=== PATIENT | female | born 1960 | race Caucasian/White ===

== ENCOUNTER → 2017-09-06 | Outpatient (CLI) | payer OTHER | LOC: FIMAGING 15:39 | PROVIDERS: ATTEND Family Medicine | DX: Z12.31 Encounter for screening mammogram for malignant neoplasm of breast (principal) ==

== ENCOUNTER 2017-09-18 12:32 | Observation (INO) | payer OTHER ==
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
--- NOTE | 2017-09-18 13:01 | CPEKG ---
Heart Rate: 62 RR Interval: 968 P-R Interval: 188 QRSD Interval: 78 QT Interval: 404 QTC Interval: 411 P [place]: 47 QRS [place]: 60 T Wave [place]: 16 EKG Severity - NORMAL ECG - EKG Impression: SINUS RHYTHM Electronically Signed By: Yinka Turk 20-Sep-2017 07:19:23
[2017-09-18 13:09] LABS: PLATELET COUNT 276 10^3/uL (150-400)
[2017-09-18] MEDS ORDERED: NS 1,000 ML IV ONE ×2 (13:10)
[2017-09-18] MEDS ORDERED: IOPAMIDOL (ISOVUE 370) 100 ML BTL IV ONE (13:13)
[2017-09-18 13:17] LABS: INR 0.92 (0.83-1.16); PROTIME(PATIENT) 12.6 SEC (12.0-15.0)
[2017-09-18] MEDS ORDERED: ASPIRIN 81 MG CHEWABLE TAB PO ONE ×2 (14:12→14:33)
[2017-09-18] MEDS ORDERED: ASPIRIN 81 MG CHEWABLE TAB ONE (14:32)
[2017-09-18] MEDS ORDERED: GADOBUTROL 10 ML VIAL IVP ONE (15:09)
[2017-09-18] MEDS ORDERED: LORazepam 0.5 MG TAB PO PRN (15:56)
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
[2017-09-18] MEDS ORDERED: oxyCODONE IR 5 MG TAB PO PRN (18:44)
[2017-09-18] MEDS ORDERED: ACETAMINOPHEN 325 MG TAB PO PRN (18:44)
[2017-09-18] MEDS ORDERED: ONDANSETRON 4 MG/2 ML VIAL IVP PRN (18:44)
[2017-09-18] MEDS ORDERED: NS 1,000 ML IV SCH (18:45)
[2017-09-18] MEDS ORDERED: ACETAMINOPHEN 650 MG SUPP PR PRN (18:45)
[2017-09-18] MEDS ORDERED: LORazepam 2 MG/ML INJ IVP PRN (18:46)
[2017-09-18] MEDS: HYDROmorphONE/DILAUDID 1 MG/ML INJ IVP PRN ×3 (20:07→23:14)
[2017-09-18] MEDS ORDERED: METOPROLOL SUCCINATE XR 25 MG TAB PO SCH (21:00)
[2017-09-18] MEDS: lamoTRIgine 100 MG TAB PO SCH (22:28)
[2017-09-19] MEDS: HYDROmorphONE/DILAUDID 1 MG/ML INJ IVP PRN ×2 (02:03→05:59)
[2017-09-19 05:48] VITALS: O2SAT 94
[2017-09-19 08:07] VITALS: TEMP 98
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
[2017-09-19] MEDS ORDERED: ENOXAPARIN 40 MG/0.4 ML SYR SC SCH (09:00)
[2017-09-19] MEDS ORDERED: ASPIRIN EC 325 MG TAB PO SCH (09:00)
[2017-09-19] MEDS: lamoTRIgine 100 MG TAB PO SCH (10:08)
[2017-09-19] MEDS: oxyCODONE IR 5 MG TAB PO PRN ×2 (10:09→14:02)
--- NOTE | 2017-09-19 10:28 | ASMTCMCOM ---
CM Note CM Note Notes: Patient admitted for stroke-like symptoms, differential dx is TIA vs partial seizure. A meningioma was found on imaging, which could explain her symptoms. Neurosurgery will see her. She will also be worked up for a thyroid mass - an ultrasound has been ordered. She has a history of depression with bipolar features and is managed with Lamictal. Patient is normally independent, lives with her , and works as a psychotherapist. [employer]IVER has seen her and no needs identified. Case Management will follow for any potential discharge needs. Date Signed: 09/19/2017 10:27 AM Electronically Signed By:Jaimee Mojica RN
--- NOTE | 2017-09-19 11:12 | ECHO ---
[email or web address] [address] [address] Main: [phone] Fax: Transthoracic Echocardiogram Name: ANN MARIE AGUDELO MR#: [id number] Study Date: 09/19/2017 Study Time: 07:32 AM Date of : 1960 Age: 56 year(s) Height: 172.7 cm (68 in.) Weight: 95.26 kg (210 lb.) BSA: 2.09 m2 Gender: Female Examination: Echo Indication: TIA 101 Image Quality: Contrast: Requested by: Bee Leon BP: 101 mmHg/50 mmHg Heart Rate: Rhythm: Indication: TIA Procedure Staff Rate And Cost Analyst: Sydnee Malagon [facility] Reading Physician: Donnie Petty Requesting Provider: Conclusions: Normal global systolic LV function. The ejection fraction is estimated to be 65-70 %. There is mild prolapse of the anterior leaflet of the mitral valve. Moderate mitral valve regurgitation is present. Moderate tricuspid regurgitation is present. Measurements: Chambers Valvular Assessment AV/MV Valvular Assessment TV/PV Normal Normal Normal Name Value Range Name Value Range Name Value Range Ao Rani (2D): 2.8 cm (1.4 cm-2.6 AV meanP mmHg ( - ) TR Vmax: 2.58 mm/s ( - ) cm) LVOT Vmax: 1.03 m/s (0.7 m/s-1.1 TR PGmax: 27 mmHg ( - ) IVSd (2D): 0.6 cm (0.6 cm-1.1 m/s) syst. PAP: 32 mmHg ( - ) cm) RAIN (VTI): 2.3 cm ( - ) LVDd (2D): 4.8 cm (3.9 cm-5.3 MV meanP mmHg ( - ) cm) MVA (Vmax): 2.6 m/s ( - ) LVDs (2D): 2.8 cm (2.1 cm-4 cm) LVPWd (2D): 0.7 cm ( - ) LVOTd 1.9 cm 1.9 cm mm LVEF (MOD4): 73 % (>=55 %) EF Range: 65-70 % Continued Measurements: Chambers Valvular Assessment AV/MV Valvular Assessment TV/PV Name Value Name Value Name Value LADs: 3.6 cm MV Annulus: 2.7 cm CVP (est.): 5 mmHg LADs Lon.2 cm MV VTI: 30.20 cm Patient: ANN MARIE AGUDELO Study Date: 09/19/2017 Page 1 of 2 07:32 AM LA Area: 21.2 cm2 MR Vena Contracta: 0.3 cm MR ERO: 0.120 cm2 MR PISA radius: 5 mm MR Reg. Volume: 21 ml MR Reg. Fraction: 12 % Additional Vessels Name Value Ao Ascendin.2 cm Findings: Left Ventricle: Normal size left ventricle. No LV hypertrophy. Normal global systolic LV function. The ejection fraction is estimated to be 65-70 %. No regional wall motion abnormality. Right Ventricle: Normal size right ventricle. Left Atrium: The left atrium is mildly dilated. Right Atrium: The right atrium is mildly dilated. Mitral Valve: There is mild prolapse of the anterior leaflet of the mitral valve. Moderate mitral valve regurgitation is present. Aortic Valve: The aortic valve is normal in appearance. Tricuspid Valve: The tricuspid valve is normal in appearance and function. Moderate tricuspid regurgitation is present. The pulmonary artery pressure is normal. Pulmonic Valve: The pulmonic valve is normal in appearance and function. Aorta: The aorta is normal. Pericardium: Trivial pericardial effusion. (No Signature Object) Patient: ANN MARIE AGUDELO Study Date: 09/19/2017 Page 2 of 2 07:32 AM [id number]
[2017-09-19 11:51] VITALS: BP 112/59; PULSE 66; RESP 16
--- NOTE | 2017-09-19 12:22 | PDMN ---
Medical Necessity Medical necessity: R temporal lobe meningioma on MRI noted, neuro changes- L facial droop and slurred speech- U/S shows 2.9 cm midline mass and 2 cm R thyroid nodule, with TSH mildly elevated, ENT, Neurosgy consults pending, ongoing eval, monitoring and tx needed > 2 midnights. IV pain, fluids
[2017-09-19] MEDS ORDERED: LACTULOSE 20 GM/30 ML UDCUP PO PRN (14:04)
[2017-09-19] MEDS ORDERED: BISACODYL 10 MG SUPP PR PRN (14:04)
[2017-09-19] MEDS ORDERED: MAGNESIUM HYDROXIDE 30 ML UDCUP PO PRN (14:04)
[2017-09-19] MEDS ORDERED: POLYETHYLENE GLYCOL 3350 17 GM PKT PO PRN (14:04)
[2017-09-19] MEDS ORDERED: DEXAMETHASONE 10 MG/ML VIAL IVP ONE (14:54)
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
--- NOTE | 2017-09-19 16:40 | GCON ---
[f rep st] CONSULTATION NEUROLOGY CONSULT. DATE OF CONSULTATION: 09/19/2017 REFERRING PHYSICIAN: Bee Leon MD CHIEF COMPLAINT: TIA. 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 No significant past cardiovascular history. She was with a client yesterday when she suddenly felt articulatory problems with speech slurring and had the sensation that her left face was drooping. After her session was over, she looked in the mirror and thought there was asymmetry with weakness on the left side. All of these symptoms lasted 20 minutes and spontaneously resolved. There was no left leg or left arm weakness. No language symptoms, such as comprehension or expressive problems. She came to the ED and had a CTA of the head and neck which showed no significant carotid or intracranial stenosis. MRI brain showed what is likely an incidental meningioma in the right para-cavernous region without edema in the surrounding right temporal area. REVIEW OF SYSTEMS: Occasional palpitations - otherwise A 10-point review of systems is done only pertinent to HPI. Past medical history, social history, home medications, allergies, see Dr. Leon 's is History and Physical. LABS: Patient has an LDL of 88; otherwise, unremarkable lipid panel and an elevated TSH. PHYSICAL EXAM: VITAL SIGNS: Blood pressure 115/60, temperature 36.7, heart rate is regular, 60s. No AFib on monitor that I am aware of. NEUROLOGIC: Higher mental function: Awake and alert. No aphasia. Cranial nerve exam: Normal 2-7. Motor exam: Normal strength and tone throughout. Sensory exam: Normal. Coordination: Normal. Gait: Normal. In summary, normal neurologic exam. IMPRESSION/PLAN: 1. Transient ischemic attack. 2. Meningoma The patient's clinical history is most consistent with a very focal transient ischemic attack, perhaps in the right motor strip - in the region encoding for the face area. We discussed at length. Her echocardiogram shows some mitral valve regurgitation and mild left atrial enlargement. Certainly, this may be a risk factor for paroxysmal atrial fibrillation. There has been no atrial fibrillation reported on telemetry thus far. Going forward, she will be on daily aspirin and statin therapy and have close followup with Cardiology for a 30-day Event monitor. If the 30-day Event monitor is negative, I encouraged the patient to proceed with an implantable monitoring manager/LINQ monitor to further screen for paroxysmal atrial fibrillation. She is agreeable to the plan. No significant carotid disease as noted above. She will follow up with me as needed as well as an outpatient. She will follow-up with neurosurgery as outpatient for evaluation and treatment of meningoma. Thank you for this consultation. Seventy total minutes floor time today reviewing testing, coordination of care with Neurosurgery and Hospital Medicine , and direct counseling with the patient and her family. /[id number]/MODL MTDD
--- NOTE | 2017-09-19 18:00 | GDS ---
[f rep st] DISCHARGE SUMMARY DISCHARGE DIAGNOSES: 1. Transient ischemic attack. 2. Right temporal lobe meningioma. 3. Thyroid nodule. 4. Midline neck mass which may be an exophytic inferior thyroid lesion. 5. Chronic kidney disease. 6. Depression with bipolar features. 7. Traumatic brain injury. CONSULTANTS: 1. Dr. Abhishek Forrest, Neurosurgery. 2. Dr. Bandar Gomez, Neurology. HISTORY OF DETAILS: Please see History and Physical, dated September 18, 2017. In brief, the patient is a 56-year-old female, with a history of prior meningioma resection in her thoracic spine, who pre sents to the emergency department with 3 intermittent episodes of left facial droop and slurred speec h. She was admitted to hospital for further management. HOSPITAL COURSE: Patient was admitted to the Med/Surg Neuro Unit. TIA was considered versus a parti al seizure in the setting of meningioma. She came in as a stroke alert. [facility] was cons ulted and recommended against tPA since her symptoms had improved. She was started on full-dose aspi rin. Neurosurgery consult was obtained and did not feel that the right temporal lobe meningioma was related in any way to her symptoms. There was no associated edema to suggest that this was a seizure . Furthermore, we would expect more positive symptoms, such as contracture, in the setting of seizur e rather than facial droop. I discussed the case with Neurology on the day of discharge. This is mo st likely a TIA event. Echocardiogram was obtained, and there was no evidence of LV thrombus. She d oes have some mitral valve disease and will need outpatient cardiology followup. Brain MRI was perfo rmed that showed no evidence of infarct. She also did undergo CTA head and neck upon presentation th at showed no large vessel occlusions and no significant carotid or vertebral stenosis. The patient h as no symptoms, such as dysphagia or odynophagia. On the day of discharge, her symptoms are complete ly resolved. She will be discharged home for further outpatient followup regarding her TIA, includin g plans for outpatient cardiac Event monitor. I discussed with her aspirin and statin therapy for se condary prevention. She will see ENT to pursue likely biopsy of her thyroid nodule. DISPOSITION: Patient is discharged home in stable condition. FOLLOWUP: 1. Dr. Emma Mcleod, Primary Care. 2. Dr. Dariel Hampton, ENT, for further evaluation of her neck mass and thyroid nodule. 3. Dr. Bandar Gomez, Neurology. 4. Dr. Rosy Anderson, [facility], to arrange for outpatient cardiac Event monitor. 5. Dr. Abhishek Forrest for followup on her right temporal lobe meningioma. DISCHARGE MEDICATIONS: 1. Aspirin 325 mg p.o. daily, #30. 2. Lipitor 40 mg p.o. daily, #30. 3. She will continue all other outpatient medications as previously prescribed. Both Neurology and Neurosurgery did not think there is an indication for Keppra or dexamethasone. /[id number]/MODL
[2017-09-19] MEDS ORDERED: levETIRAcetam 500 MG TAB PO SCH (21:00)
[2017-09-19] MEDS ORDERED: SENNOSIDES/DOCUSATE SODIUM TAB PO SCH (21:00)
== END 2017-09-19 16:18 | disposition home or self-care (01) ==
LOC: F3N 15:50 → INTOOBSV 09-19 11:48 → OBSVTOIN 09-19 11:48
PROVIDERS: ADMIT Internal Medicine; ATTEND Hospitalist
DX: G45.9 Transient cerebral ischemic attack, unspecified (principal); D32.0 Benign neoplasm of cerebral meninges; E04.1 Nontoxic single thyroid nodule; Z87.820 Personal history of traumatic brain injury; N18.9 Chronic kidney disease, unspecified; F32.9 Major depressive disorder, single episode, unspecified; Z86.018 Personal history of other benign neoplasm; Z87.891 Personal history of nicotine dependence; I47.1 Supraventricular tachycardia
CPT/HCPCS: 70450; 70496; 70498; 70553; 71045; 76536; 92610; 93005; 93306; 96360; 99285; G0378; 82947-QW; 84481-90; A9585; J1100; J1170; J1650; Q9967

== ENCOUNTER 2017-10-11 12:15 | Day surgery (SDC) | payer OTHER ==
[2017-10-11] MEDS ORDERED: LIDOCAINE 1% 300 MG/30 ML SDV SC ONE (12:19)
--- NOTE | 2017-10-11 13:26 | PDHPUP ---
History & Physical Update H&P update statement: This history and physical update is based on an assessment of the patient which was completed after admission or registration (within 24 hours), but prior to the surgery/procedure. H&P update: H&P reviewed & patient examined, no change in patient's condition since H&P completed
--- NOTE | 2017-10-11 14:01 | CPIP ---
[f rep st] INVASIVE CARDIAC PROCEDURE DATE OF PROCEDURE: 10/11/2017 INDICATION: The patient is 57 years old, and has a history of cryptogenic CVA. As of yet, no arrhyt hmia has been identified. PROCEDURE: Implantation of a [employer] LINQ. TECHNIQUE: Following informed consent, the patient was brought to the [facility] in a fasting state. The c hest was prepped and draped in usual sterile fashion. 2% lidocaine was infiltrated in the skin overl yang the 4th intercostal space. A 1 cm incision was made, and the [employer] LINQ was injected under the skin. The skin was then closed with 2 dash. COMPLICATIONS: None. DISPOSITION: The patient will be recovered here in the [facility], discharged home later today. She will f ollow up in our office next week. /[id number]/MODL
== END 2017-10-11 13:59 | disposition home or self-care (01) ==
LOC: FCATH 12:15
PROVIDERS: ATTEND Internal Medicine Cardiovascular Disease
PROC: 0JH602Z Insertion of Monitoring Device into Chest Subcutaneous Tissue and Fascia, Open Approach (ICD-10-PCS; principal; 2017-10-11)
DX: G45.9 Transient cerebral ischemic attack, unspecified (principal); D32.0 Benign neoplasm of cerebral meninges; Z87.820 Personal history of traumatic brain injury; N18.9 Chronic kidney disease, unspecified; F32.9 Major depressive disorder, single episode, unspecified; I47.1 Supraventricular tachycardia; I34.1 Nonrheumatic mitral (valve) prolapse
CPT/HCPCS: C1764

== ENCOUNTER → 2017-10-30 | Outpatient (CLI) | payer OTHER ==
[~2017-10-30] MED LIST: GADOBUTROL 10 ML VIAL IVP ONE
== END ==
LOC: FIMAGING 12:53
PROVIDERS: ATTEND Physician Assistant Surgical
DX: R22.1 Localized swelling, mass and lump, neck (principal); E04.1 Nontoxic single thyroid nodule; M50.31 Other cervical disc degeneration, high cervical region; M48.02 Spinal stenosis, cervical region; M51.36 Other intervertebral disc degeneration, lumbar region
CPT/HCPCS: A9585

== ENCOUNTER → 2017-12-17 | Outpatient (CLI) | payer OTHER | LOC: FIMAGING 07:43 | PROVIDERS: ATTEND Physician Assistant Surgical | DX: Z09 Encounter for follow-up examination after completed treatment for conditions other than malignant neoplasm (principal); Z86.018 Personal history of other benign neoplasm; Z98.890 Other specified postprocedural states | CPT/HCPCS: A9585 ==

== ENCOUNTER → 2018-03-18 | Outpatient (CLI) | payer OTHER | LOC: FIMAGING 12:52 | PROVIDERS: ATTEND Radiology Radiation Oncology | DX: Z08 Encounter for follow-up examination after completed treatment for malignant neoplasm (principal); D33.2 Benign neoplasm of brain, unspecified | CPT/HCPCS: A9585 ==

== ENCOUNTER → 2018-09-09 | Outpatient (CLI) | payer OTHER | LOC: FIMAGING 09:55 | PROVIDERS: ATTEND Family Medicine | DX: Z12.31 Encounter for screening mammogram for malignant neoplasm of breast (principal); Z13.820 Encounter for screening for osteoporosis; M85.89 Other specified disorders of bone density and structure, multiple sites ==

== ENCOUNTER → 2018-10-23 | Outpatient (CLI) | payer OTHER | LOC: FIMAGING 14:12 | PROVIDERS: ATTEND Neurological Surgery | DX: D32.9 Benign neoplasm of meninges, unspecified (principal) | CPT/HCPCS: A9585 ==